=== PATIENT | male | born 1950 | race Caucasian/White ===

== ENCOUNTER 2017-06-17 16:57 | Inpatient (IN) | payer MEDICARE, MEDICAID ==
[~2017-06-17] VITALS: Ht 177.8 cm; Wt 70.0 kg
[~2017-06-17 16:57] MED LIST: ALBU18HF2 INH
[2017-06-17] MEDS ORDERED: ondansetron/PF 4mg/2ml inj ONE (18:11)
[2017-06-17 18:24] LABS: ALANINE AMINOTRANSFERASE 13 U/L (12-78); ALBUMIN 2.6 G/DL (3.4-5.0); ALBUMIN/GLOBULIN RATIO 1.4 (1.1-1.5); ALKALINE PHOSPHATASE 62 IU/L (46-116); ANION GAP 11 (8-16); ASPARTATE AMINO TRANSFERASE 19 U/L (10-37); BILIRUBIN,TOTAL 0.3 MG/DL (0.1-1.0); BLOOD UREA NITROGEN 12 MG/DL (7-18); BUN/CREATININE RATIO 10.8 (5.4-32.0); CALCIUM 6.9 MG/DL (8.5-10.1); CHLORIDE 114 MMOL/L (99-107); CREATININE 1.11 MG/DL (0.60-1.10); GLUCOSE 185 MG/DL (70-104); SODIUM 145 MMOL/L (135-145); TOTAL CARBON DIOXIDE 20.1 MMOL/L (24-32); TOTAL PROTEIN 4.5 G/DL (6.4-8.2); eGFR 67 ML/MIN
[2017-06-17 18:25] LABS: POTASSIUM 4.2 MMOL/L (3.5-5.1)
[2017-06-17 19:07] LABS: BASOPHILS % (AUTO) 0.1 % (0-1); EOSINOPHILS # (AUTO) 0.3 X10'3 (0-0.9); EOSINOPHILS % (AUTO) 1.5 % (0-6); HEMATOCRIT 26.7 % (42.0-52.0); HEMOGLOBIN 9.2 g/dl (14.0-17.9); LYMPHOCYTES # (AUTO) 1.1 X10'3 (1.1-4.8); LYMPHOCYTES % (AUTO) 6.1 % (21-51); MEAN CORPUSCULAR HEMOGLOBIN 35.5 PG (27.0-31.0); MEAN CORPUSCULAR HGB CONC 34.4 % (33.0-36.5); MEAN CORPUSCULAR VOLUME 103.2 FL (78-98); MONOCYTES # (AUTO) 1.5 X10'3 (0-0.9); MONOCYTES % (AUTO) 8.3 % (2-12); NEUTROPHILS # (AUTO) 14.9 X10'3 (1.8-7.7); PLATELET COUNT 248 X10'3 (140-440); RED BLOOD COUNT 2.59 X10'6 (4.70-6.10); RED CELL DISTRIBUTION WIDTH 14.3 % (11.5-14.5); WHITE BLOOD COUNT 17.7 X10'3 (4.5-11.0)
[2017-06-17] MEDS ORDERED: iohexol 350MG/ML 100ml bottle IV ONE (19:13)
[2017-06-17 19:15] LABS: INR 1.2 INR; PARTIAL THROMBOPLASTIN TIME 25 SECONDS (22-32); PROTHROMBIN TIME 12.5 SECONDS (9.0-12.0)
[2017-06-17] MEDS ORDERED: levoFLOXACIN-Levaquin 500mg/D5 100 ML IV ONE (19:25)
[2017-06-17] MEDS ORDERED: LIDOcaine 2% 10ml TOPICAL JELLY (Urojet) MM ONE ×2 (20:05→20:55)
[2017-06-17] MEDS ORDERED: heparin 10,000 units/1 ML INJ ONE (21:34)
[2017-06-17 21:35] LABS: CLARITY,URINE SLIGHTLY CLOUDY (Clear); COLOR,URINE YELLOW (Yellow); GLUCOSE, URINE NEGATIVE (Neg); KETONES,URINE NEGATIVE (Neg); LEUKOCYTE ESTERASE ,URINE NEGATIVE (Neg); NITRITES, URINE NEGATIVE (Neg); OCCULT BLOOD,URINE LARGE (Neg); PH,URINE 5.5 (4.8-8.0); PROTEIN,URINE NEGATIVE (Neg); UROBILINOGEN,URINE 0.2 E.U/dL (0.2-1.0)
[2017-06-17] MEDS ORDERED: clindamycin-Cleocin 900mg/D5W 50 ML IV ONE (21:35)
[2017-06-17 21:39] LABS: UA COLLECTION TYPE FOLEY CATH
[2017-06-17 21:52] VITALS: BP 98/64
[2017-06-17 21:52] LABS: BACTERIA,URINE FEW /HPF (Neg); HYALINE CASTS 0-3 /LPF (NEGATIVE); MUCUS STRANDS FEW /LPF (Neg); RBC,URINE 50-100 /HPF (0-2); SQUAMOUS EPITHELIAL CELL,UR FEW /LPF (FEW); TRANSITIONAL EPI CELLS,URINE FEW /HPF
[2017-06-17] MEDS ORDERED: midazolam 2 mg/2 ml injection ONE (21:54)
[2017-06-17] MEDS ORDERED: fentaNYL /PF 50mcg/ml 5ml ampule ONE (21:55)
[2017-06-17] MEDS ORDERED: etomidate 2mg/ml inj. ONE (21:57)
[2017-06-17 21:59] VITALS: BP 108/79
[2017-06-17] MEDS ORDERED: rocuronium 10mg/ml inj IV ONE (21:59)
[2017-06-17] MEDS ORDERED: LIDOcaine 2% (20mg/ml) 5ml vial ONE (21:59)
[2017-06-17] MEDS ORDERED: nitroGLYCERIN-Tridil 50MG/D5W 250 ML IV ONE (22:08)
[2017-06-17] MEDS ORDERED: sevoflurane 250ml liquid IH ONE (22:14)
[2017-06-17] MEDS ORDERED: phenylephrine 10mg/ml inj IV ONE (22:14)
[2017-06-17] MEDS ORDERED: fentaNYL/PF 50MCG/1 ML 2ML syringe ONE (23:23)
[2017-06-17] MEDS ORDERED: insulin regular, human vial - multi-dose ONE (23:41)
[2017-06-17 23:45] LABS: ISTAT ANION GAP 12 (8-12); ISTAT BUN 11 mg/dL (6-19); ISTAT CL 112 mmol/L (99-107); ISTAT CREATININE 0.8 mg/dL (0.8-1.3); ISTAT GLUCOSE 168 mg/dL (70-104); ISTAT HGB 7.5 g/dl (14.0-18.0); ISTAT Hct 22 %PCV (42-52); ISTAT IONIZED CALCIUM 1.03 mmol/L (1.03-1.32); ISTAT K 4.1 mmol/L (3.5-5.1); ISTAT NA 144 mmol/L (135-145); ISTAT TOTAL CO2 20 mmol/L (24-32); ISTAT eGFR > 90 ML/MIN; POC BUN/CREATININE RATIO 13.8 (5.4-32.0)
[2017-06-18] VITALS (23 sets, daily range): BP systolic 92–160; BP diastolic 50–93
[2017-06-18] MEDS ORDERED: rocuronium 10mg/ml inj IV ONE ×2 (00:02)
[2017-06-18] MEDS ORDERED: oxymetazoline 15 ML nasal spray NS ONE (00:15)
[2017-06-18] MEDS ORDERED: fentaNYL/PF 50MCG/1 ML 2ML syringe ONE (01:37)
[2017-06-18 01:40] LABS: ISTAT ANION GAP 11 (8-12); ISTAT BUN 10 mg/dL (6-19); ISTAT CL 117 mmol/L (99-107); ISTAT CREATININE 0.8 mg/dL (0.8-1.3); ISTAT GLUCOSE 105 mg/dL (70-104); ISTAT HGB 8.5 g/dl (14.0-18.0); ISTAT Hct 25 %PCV (42-52); ISTAT IONIZED CALCIUM 0.95 mmol/L (1.03-1.32); ISTAT K 3.8 mmol/L (3.5-5.1); ISTAT NA 146 mmol/L (135-145); ISTAT TOTAL CO2 18 mmol/L (24-32); ISTAT eGFR > 90 ML/MIN; POC BUN/CREATININE RATIO 12.5 (5.4-32.0)
[2017-06-18 01:46] LABS: ABG BASE EXCESS -9.3 mmol/L (-2.0-3.0); ABG HCO3 16.3 mmol/L (22.0-26.0); ABG OXYGEN SATURATION 98.9 % (95-98); ABG PCO2 (T) 35.8 mmHg (35.0-48.0); ABG PO2 (T) 266.4 mmHg (83-108); FCOHb 0.3 % (0.5-1.5); FMetHb 0.3 % (0.3-1.12); FO2Hb 98.3 % (94-100); TOTAL HEMOGLOBIN 11.2 G/dl (14.0-18.0)
[2017-06-18] MEDS ORDERED: sodium bicarbonate 1 MEQ/1 ml inj ONE ×2 (01:49)
[2017-06-18] MEDS ORDERED: midazolam 100mg in NS 100ml 100 ML IV PRN (03:26)
[2017-06-18] MEDS ORDERED: FENTANYL-0.9 % NACL/PF 100 ML IV PRN (03:26)
[2017-06-18] MEDS ORDERED: clindamycin phosphate 150mg/ml inj. ONE (03:47)
[2017-06-18] MEDS ORDERED: gentamicin 40 MG/1 ML inj ONE (03:47)
[2017-06-18] MEDS ORDERED: morphine 10mg/ml inj. ONE (03:48)
[2017-06-18 05:01] LABS: ABG BASE EXCESS -7.3 mmol/L (-2.0-3.0); ABG HCO3 17.8 mmol/L (22.0-26.0); ABG OXYGEN SATURATION 98.9 % (95-98); ABG PH (T) 7.334 (7.350-7.450); FCOHb 0.3 % (0.5-1.5); FMetHb 0.2 % (0.3-1.12); FO2Hb 98.4 % (94-100); MINUTE VOLUME 8 L/min; PATIENT TEMPERATURE 36.6; PEEP 5 cm H2O; RESPIRATORY RATE 12 b/min; RESPIRATORY RATE (OBSERVED) 12 b/min; TIDAL VOLUME 600 mL; TOTAL HEMOGLOBIN 12.2 G/dl (14.0-18.0)
[2017-06-18] MEDS: clindamycin 600mg/D5W 50ml 50 ML IV SCH ×3 (09:16→19:56)
[2017-06-18] MEDS: lactobacillus rhamnosus 10,000 MMU CELLS/CAPSULE PO SCH ×2 (09:16→19:56)
[2017-06-18] MEDS: Potassium Cl inj 20 MEQ in ringers solution, lacted 1,000 ML IV SCH ×3 (09:16→20:03)
[2017-06-18] MEDS: levoFLOXACIN-Levaquin 750MG/D5 150 ML IV SCH (09:16)
[2017-06-18] MEDS ORDERED: CADD PCA waste documentation MC PRN (14:50)
[2017-06-18] MEDS ORDERED: naloxone 0.4 mg/ml inj IV PRN (14:50)
[2017-06-18] MEDS: HYDROmorphone/NS 1 mg/ml CADD 50 ML IV SCH ×5 (17:00→23:00)
[2017-06-18] MEDS: ondansetron/PF 4mg/2ml inj IV PRN (18:50)
[2017-06-19] VITALS (21 sets, daily range): BP systolic 111–161; BP diastolic 74–99
[2017-06-19] MEDS: HYDROmorphone/NS 1 mg/ml CADD 50 ML IV SCH ×12 (01:00→23:00)
[2017-06-19] MEDS ORDERED: ipratropium 0.5 MG/2.5ML nebule IH PRN (02:15)
[2017-06-19] MEDS: albuterol 2.5 MG/3 ML nebule NEB PRN ×2 (02:30→08:09)
[2017-06-19] MEDS: clindamycin 600mg/D5W 50ml 50 ML IV SCH ×4 (02:41→19:51)
[2017-06-19] MEDS: ondansetron/PF 4mg/2ml inj IV PRN ×3 (02:41→17:47)
[2017-06-19 04:59] LABS: BASOPHILS % (AUTO) 0.1 % (0-1); EOSINOPHILS % (AUTO) 0 % (0-6); HEMATOCRIT 31.6 % (42.0-52.0); LYMPHOCYTES # (AUTO) 0.6 X10'3 (1.1-4.8); MEAN CORPUSCULAR HEMOGLOBIN 32.6 PG (27.0-31.0); MEAN CORPUSCULAR HGB CONC 34.7 % (33.0-36.5); MEAN CORPUSCULAR VOLUME 93.9 FL (78-98); MEAN PLATELET VOLUME 7.2 FL (7.4-10.4); MONOCYTES % (AUTO) 9.2 % (2-12); NEUTROPHILS # (AUTO) 9.5 X10'3 (1.8-7.7); NEUTROPHILS % (AUTO) 85.7 % (42-75); PLATELET COUNT 150 X10'3 (140-440); RED BLOOD COUNT 3.36 X10'6 (4.70-6.10); RED CELL DISTRIBUTION WIDTH 18.8 % (11.5-14.5); WHITE BLOOD COUNT 11.1 X10'3 (4.5-11.0)
[2017-06-19 05:09] LABS: ALBUMIN 1.9 G/DL (3.4-5.0); ANION GAP 10 (8-16); BLOOD UREA NITROGEN 21 MG/DL (7-18); BUN/CREATININE RATIO 9.3 (5.4-32.0); CALCIUM 6.9 MG/DL (8.5-10.1); CHLORIDE 114 MMOL/L (99-107); CREATININE 2.27 MG/DL (0.60-1.10); GLUCOSE 110 MG/DL (70-104); SODIUM 146 MMOL/L (135-145); eGFR 29 ML/MIN
[2017-06-19] MEDS: Potassium Cl inj 20 MEQ in ringers solution, lacted 1,000 ML IV SCH ×3 (05:58→22:32)
[2017-06-19] MEDS: mineral oil/petrolatum ophthal oint EACHEYE SCH ×3 (08:00→19:51)
[2017-06-19] MEDS: lactobacillus rhamnosus 10,000 MMU CELLS/CAPSULE PO SCH ×2 (08:25→19:52)
[2017-06-19] MEDS: levoFLOXACIN-Levaquin 750MG/D5 150 ML IV SCH (08:30)
[2017-06-19] MEDS: pantoprazole 40 MG vial IV SCH (11:29)
[2017-06-19 17:13] LABS: CLARITY,URINE CLOUDY (Clear); COLOR,URINE YELLOW (Yellow); GLUCOSE, URINE 250 mg/dl (Neg); KETONES,URINE NEGATIVE (Neg); LEUKOCYTE ESTERASE ,URINE NEGATIVE (Neg); NITRITES, URINE NEGATIVE (Neg); OCCULT BLOOD,URINE LARGE (Neg); PH,URINE 5.5 (4.8-8.0); PROTEIN,URINE 100 mg/dl (Neg); UROBILINOGEN,URINE 0.2 E.U/dL (0.2-1.0)
[2017-06-19 17:19] LABS: UA COLLECTION TYPE FOLEY CATH
[2017-06-19 17:21] LABS: BACTERIA,URINE NONE SEEN /HPF (Neg); SQUAMOUS EPITHELIAL CELL,UR NONE SEEN /LPF (FEW); WBC,URINE 0-4 /HPF (0-4)
[2017-06-19 17:22] LABS: TRANSITIONAL EPI CELLS,URINE FEW /HPF
[2017-06-19 17:37] LABS: UA EOSINOPHILS NO EOS /HPF
[2017-06-20] VITALS (24 sets, daily range): BP systolic 114–167; BP diastolic 70–99
[2017-06-20] MEDS: HYDROmorphone/NS 1 mg/ml CADD 50 ML IV SCH ×12 (01:00→23:00)
[2017-06-20] MEDS: clindamycin 600mg/D5W 50ml 50 ML IV SCH ×4 (01:43→19:56)
[2017-06-20] MEDS: ondansetron/PF 4mg/2ml inj IV PRN ×3 (01:55→17:24)
[2017-06-20] MEDS: mineral oil/petrolatum ophthal oint EACHEYE SCH ×4 (02:00→19:56)
[2017-06-20 02:48] LABS: BASOPHILS % (AUTO) 0.2 % (0-1); EOSINOPHILS % (AUTO) 0 % (0-6); HEMOGLOBIN 9.3 g/dl (14.0-17.9); LYMPHOCYTES # (AUTO) 0.5 X10'3 (1.1-4.8); LYMPHOCYTES % (AUTO) 5.2 % (21-51); MEAN CORPUSCULAR HEMOGLOBIN 32.5 PG (27.0-31.0); MEAN CORPUSCULAR HGB CONC 34.5 % (33.0-36.5); MEAN CORPUSCULAR VOLUME 94.3 FL (78-98); MEAN PLATELET VOLUME 7.1 FL (7.4-10.4); MONOCYTES # (AUTO) 0.8 X10'3 (0-0.9); MONOCYTES % (AUTO) 7.6 % (2-12); NEUTROPHILS # (AUTO) 9.1 X10'3 (1.8-7.7); PLATELET COUNT 126 X10'3 (140-440); RED BLOOD COUNT 2.87 X10'6 (4.70-6.10); RED CELL DISTRIBUTION WIDTH 18.1 % (11.5-14.5); WHITE BLOOD COUNT 10.4 X10'3 (4.5-11.0)
[2017-06-20 03:08] LABS: ALBUMIN 1.8 G/DL (3.4-5.0); ANION GAP 11 (8-16); BLOOD UREA NITROGEN 23 MG/DL (7-18); BUN/CREATININE RATIO 11.7 (5.4-32.0); CALCIUM 7.5 MG/DL (8.5-10.1); CHLORIDE 111 MMOL/L (99-107); CREATININE 1.96 MG/DL (0.60-1.10); GLUCOSE 95 MG/DL (70-104); POTASSIUM 3.8 MMOL/L (3.5-5.1); SODIUM 144 MMOL/L (135-145); TOTAL CARBON DIOXIDE 21.8 MMOL/L (24-32); eGFR 35 ML/MIN
[2017-06-20] MEDS: Potassium Cl inj 20 MEQ in ringers solution, lacted 1,000 ML IV SCH ×3 (05:04→15:11)
[2017-06-20] MEDS: pantoprazole 40 MG vial IV SCH (07:39)
[2017-06-20] MEDS: lactobacillus rhamnosus 10,000 MMU CELLS/CAPSULE PO SCH ×2 (07:45→19:57)
[2017-06-20] MEDS: diltiazem 30mg tablet PO SCH ×2 (15:15→19:57)
[2017-06-21] VITALS (22 sets, daily range): BP systolic 104–147; BP diastolic 62–86
[2017-06-21] MEDS: Potassium Cl inj 20 MEQ in ringers solution, lacted 1,000 ML IV SCH (00:06)
[2017-06-21] MEDS: HYDROmorphone/NS 1 mg/ml CADD 50 ML IV SCH ×12 (01:00→23:00)
[2017-06-21] MEDS: clindamycin 600mg/D5W 50ml 50 ML IV SCH ×4 (01:51→20:07)
[2017-06-21] MEDS: diltiazem 30mg tablet PO SCH ×4 (01:51→20:07)
[2017-06-21] MEDS: mineral oil/petrolatum ophthal oint EACHEYE SCH ×3 (01:52→12:56)
[2017-06-21 02:45] LABS: BASOPHILS % (AUTO) 0 % (0-1); EOSINOPHILS # (AUTO) 0.1 X10'3 (0-0.9); LYMPHOCYTES # (AUTO) 0.6 X10'3 (1.1-4.8); LYMPHOCYTES % (AUTO) 5.5 % (21-51); MEAN CORPUSCULAR HEMOGLOBIN 32.6 PG (27.0-31.0); MEAN CORPUSCULAR HGB CONC 34.5 % (33.0-36.5); MEAN CORPUSCULAR VOLUME 94.4 FL (78-98); MEAN PLATELET VOLUME 6.6 FL (7.4-10.4); MONOCYTES # (AUTO) 0.7 X10'3 (0-0.9); MONOCYTES % (AUTO) 6.4 % (2-12); NEUTROPHILS % (AUTO) 87.1 % (42-75); PLATELET COUNT 119 X10'3 (140-440); RED BLOOD COUNT 2.75 X10'6 (4.70-6.10); RED CELL DISTRIBUTION WIDTH 17.5 % (11.5-14.5); WHITE BLOOD COUNT 11.5 X10'3 (4.5-11.0)
[2017-06-21 02:54] LABS: ALBUMIN 1.8 G/DL (3.4-5.0); ANION GAP 12 (8-16); BLOOD UREA NITROGEN 26 MG/DL (7-18); BUN/CREATININE RATIO 14.9 (5.4-32.0); CALCIUM 7.7 MG/DL (8.5-10.1); CHLORIDE 107 MMOL/L (99-107); CREATININE 1.74 MG/DL (0.60-1.10); GLUCOSE 93 MG/DL (70-104); SODIUM 138 MMOL/L (135-145); TOTAL CARBON DIOXIDE 19.4 MMOL/L (24-32); eGFR 40 ML/MIN
[2017-06-21] MEDS: ondansetron/PF 4mg/2ml inj IV PRN ×2 (07:10→19:30)
[2017-06-21] MEDS: pantoprazole 40 MG vial IV SCH (08:19)
[2017-06-21] MEDS: lactobacillus rhamnosus 10,000 MMU CELLS/CAPSULE PO SCH ×2 (08:19→20:07)
[2017-06-21] MEDS: levoFLOXACIN-Levaquin 750MG/D5 150 ML IV SCH (08:19)
[2017-06-21] MEDS: DARUNAVIR ETHANOLATE 800 MG PO SCH (08:45)
[2017-06-21] MEDS: TIVICAY 50 MG PO SCH (10:00)
[2017-06-21] MEDS ORDERED: VALA100027 (11:49)
[2017-06-21] MEDS ORDERED: DOLU50TA (11:49)
[2017-06-21] MEDS ORDERED: PANT40TA4 (11:49)
[2017-06-21] MEDS ORDERED: DARU800T (11:49)
[2017-06-21] MEDS ORDERED: RITO100T4 (11:49)
[2017-06-21] MEDS ORDERED: [UNRECOGNIZED DRUG - CODE] (11:49)
[2017-06-21] MEDS ORDERED: DOXA2TAB46 (11:49)
[2017-06-21] MEDS ORDERED: magnesium hydroxide 30ml (MOM) UD suspension PO PRN (13:55)
[2017-06-21] MEDS ORDERED: bisacodyl 10mg suppository rectal RC PRN (13:55)
[2017-06-21] MEDS: docusate sod 100mg capsule PO SCH (20:08)
[2017-06-21] MEDS ORDERED: HYDROcodone/acetaminophen 10/325mg tab PO PRN (20:30)
[2017-06-22] VITALS: BP 142/82
[2017-06-22] MEDS: HYDROmorphone/NS 1 mg/ml CADD 50 ML IV SCH ×12 (01:00→23:00)
[2017-06-22] MEDS: ondansetron/PF 4mg/2ml inj IV PRN ×2 (02:13→20:00)
[2017-06-22] MEDS: clindamycin 600mg/D5W 50ml 50 ML IV SCH ×4 (02:16→19:53)
[2017-06-22] MEDS: diltiazem 30mg tablet PO SCH ×4 (02:34→19:55)
[2017-06-22] MEDS: normal saline 1000ml 1,000 ML IV SCH (04:23)
[2017-06-22 06:02] LABS: ALBUMIN 1.9 G/DL (3.4-5.0); ANION GAP 9 (8-16); BLOOD UREA NITROGEN 25 MG/DL (7-18); BUN/CREATININE RATIO 15.3 (5.4-32.0); CALCIUM 7.7 MG/DL (8.5-10.1); CHLORIDE 103 MMOL/L (99-107); CREATININE 1.63 MG/DL (0.60-1.10); GLUCOSE 95 MG/DL (70-104); POTASSIUM 3.6 MMOL/L (3.5-5.1); SODIUM 135 MMOL/L (135-145); TOTAL CARBON DIOXIDE 23.3 MMOL/L (24-32); eGFR 43 ML/MIN
[2017-06-22 06:03] LABS: BASOPHILS % (AUTO) 0 % (0-1); EOSINOPHILS % (AUTO) 0 % (0-6); HEMATOCRIT 27.5 % (42.0-52.0); HEMOGLOBIN 9.4 g/dl (14.0-17.9); LYMPHOCYTES # (AUTO) 0.6 X10'3 (1.1-4.8); LYMPHOCYTES % (AUTO) 4.6 % (21-51); MEAN CORPUSCULAR HEMOGLOBIN 32.6 PG (27.0-31.0); MEAN CORPUSCULAR HGB CONC 34.3 % (33.0-36.5); MEAN CORPUSCULAR VOLUME 94.9 FL (78-98); MEAN PLATELET VOLUME 6.6 FL (7.4-10.4); MONOCYTES # (AUTO) 1.4 X10'3 (0-0.9); MONOCYTES % (AUTO) 11.9 % (2-12); NEUTROPHILS % (AUTO) 83.5 % (42-75); PLATELET COUNT 120 X10'3 (140-440); RED CELL DISTRIBUTION WIDTH 17.1 % (11.5-14.5)
[2017-06-22 07:45] VITALS: BP 150/83
[2017-06-22] MEDS: TIVICAY 50 MG PO SCH (08:00)
[2017-06-22] MEDS: DARUNAVIR ETHANOLATE 800 MG PO SCH (08:00)
[2017-06-22] MEDS: pantoprazole 40mg Tablet.DR PO SCH (08:48)
[2017-06-22] MEDS: docusate sod 100mg capsule PO SCH ×2 (08:51→19:55)
[2017-06-22] MEDS: lactobacillus rhamnosus 10,000 MMU CELLS/CAPSULE PO SCH ×2 (08:52→19:55)
[2017-06-22 10:37] VITALS: BP 150/83
[2017-06-22 11:26] VITALS: BP 147/84
[2017-06-22 20:00] VITALS: BP 133/84
[2017-06-23] VITALS: BP 147/89
[2017-06-23] MEDS: HYDROmorphone/NS 1 mg/ml CADD 50 ML IV SCH ×11 (01:00→21:00)
[2017-06-23] MEDS: diltiazem 30mg tablet PO SCH ×4 (02:45→20:05)
[2017-06-23] MEDS: clindamycin 600mg/D5W 50ml 50 ML IV SCH ×2 (02:45→08:04)
[2017-06-23 06:21] LABS: BASOPHILS % (AUTO) 0 % (0-1); EOSINOPHILS # (AUTO) 0.1 X10'3 (0-0.9); EOSINOPHILS % (AUTO) 0.9 % (0-6); HEMATOCRIT 27.6 % (42.0-52.0); HEMOGLOBIN 9.6 g/dl (14.0-17.9); LYMPHOCYTES # (AUTO) 0.6 X10'3 (1.1-4.8); LYMPHOCYTES % (AUTO) 3.9 % (21-51); MEAN CORPUSCULAR HEMOGLOBIN 33.1 PG (27.0-31.0); MEAN CORPUSCULAR HGB CONC 34.9 % (33.0-36.5); MEAN CORPUSCULAR VOLUME 94.8 FL (78-98); MEAN PLATELET VOLUME 6.2 FL (7.4-10.4); MONOCYTES # (AUTO) 1.8 X10'3 (0-0.9); MONOCYTES % (AUTO) 12.6 % (2-12); NEUTROPHILS # (AUTO) 11.8 X10'3 (1.8-7.7); NEUTROPHILS % (AUTO) 82.6 % (42-75); PLATELET COUNT 129 X10'3 (140-440); RED BLOOD COUNT 2.91 X10'6 (4.70-6.10); RED CELL DISTRIBUTION WIDTH 16.7 % (11.5-14.5); WHITE BLOOD COUNT 14.3 X10'3 (4.5-11.0)
[2017-06-23 06:36] LABS: ALBUMIN 1.7 G/DL (3.4-5.0); ANION GAP 9 (8-16); BLOOD UREA NITROGEN 21 MG/DL (7-18); BUN/CREATININE RATIO 14.1 (5.4-32.0); CALCIUM 7.5 MG/DL (8.5-10.1); CHLORIDE 102 MMOL/L (99-107); CREATININE 1.49 MG/DL (0.60-1.10); GLUCOSE 90 MG/DL (70-104); POTASSIUM 3.4 MMOL/L (3.5-5.1); SODIUM 135 MMOL/L (135-145); TOTAL CARBON DIOXIDE 23.9 MMOL/L (24-32); eGFR 47 ML/MIN
[2017-06-23 07:00] VITALS: BP 144/73
[2017-06-23] MEDS: LAMIVUDINE 300 MG PO SCH (08:00)
[2017-06-23] MEDS: TIVICAY 50 MG PO SCH (08:00)
[2017-06-23] MEDS: DARUNAVIR ETHANOLATE 800 MG PO SCH (08:00)
[2017-06-23] MEDS: docusate sod 100mg capsule PO SCH ×2 (08:03→20:05)
[2017-06-23] MEDS: lactobacillus rhamnosus 10,000 MMU CELLS/CAPSULE PO SCH ×2 (08:03→20:05)
[2017-06-23] MEDS: levoFLOXACIN-Levaquin 750MG/D5 150 ML IV SCH (08:04)
[2017-06-23] MEDS: aspirin 81mg tablet.DR PO SCH (08:04)
[2017-06-23] MEDS: pantoprazole 40mg Tablet.DR PO SCH ×2 (08:04→16:53)
[2017-06-23] MEDS: ondansetron/PF 4mg/2ml inj IV PRN ×2 (08:09→21:55)
[2017-06-23 12:30] VITALS: BP 125/90
[2017-06-23 20:00] VITALS: BP 144/86
[2017-06-24] VITALS: BP 132/82
[2017-06-24] MEDS: HYDROmorphone/NS 1 mg/ml CADD 50 ML IV SCH ×9 (01:00→17:00)
[2017-06-24] MEDS: diltiazem 30mg tablet PO SCH ×4 (02:32→20:23)
[2017-06-24] MEDS: normal saline 1000ml 1,000 ML IV SCH (04:20)
[2017-06-24 07:00] VITALS: BP 138/74
[2017-06-24] MEDS: lactobacillus rhamnosus 10,000 MMU CELLS/CAPSULE PO SCH ×2 (07:58→20:23)
[2017-06-24] MEDS: docusate sod 100mg capsule PO SCH ×2 (07:59→20:23)
[2017-06-24] MEDS: pantoprazole 40mg Tablet.DR PO SCH ×2 (07:59→17:56)
[2017-06-24] MEDS: DARUNAVIR ETHANOLATE 800 MG PO SCH (08:00)
[2017-06-24] MEDS: LAMIVUDINE 300 MG PO SCH (08:00)
[2017-06-24] MEDS: TIVICAY 50 MG PO SCH (08:00)
[2017-06-24] MEDS ORDERED: methylnaltrexone br 12mg/0.6ml inj***SubQ only SQ SCH (08:00)
[2017-06-24] MEDS: citalopram 20mg tablet PO SCH (08:00)
[2017-06-24] MEDS: aspirin 81mg tablet.DR PO SCH (08:01)
[2017-06-24 09:32] LABS: HIV-1 RNA by PCR <20 copies/mL (.)
[2017-06-24 11:00] VITALS: BP 146/87
[2017-06-24 11:12] LABS: BASOPHILS % (AUTO) 0.1 % (0-1); EOSINOPHILS # (AUTO) 0.2 X10'3 (0-0.9); EOSINOPHILS % (AUTO) 1.5 % (0-6); HEMATOCRIT 28.8 % (42.0-52.0); HEMOGLOBIN 9.9 g/dl (14.0-17.9); LYMPHOCYTES # (AUTO) 0.4 X10'3 (1.1-4.8); LYMPHOCYTES % (AUTO) 3.2 % (21-51); MEAN CORPUSCULAR HEMOGLOBIN 32.7 PG (27.0-31.0); MEAN CORPUSCULAR HGB CONC 34.3 % (33.0-36.5); MEAN CORPUSCULAR VOLUME 95.3 FL (78-98); MEAN PLATELET VOLUME 6.4 FL (7.4-10.4); MONOCYTES # (AUTO) 1.7 X10'3 (0-0.9); NEUTROPHILS # (AUTO) 10.7 X10'3 (1.8-7.7); NEUTROPHILS % (AUTO) 82.2 % (42-75); PLATELET COUNT 175 X10'3 (140-440); RED BLOOD COUNT 3.02 X10'6 (4.70-6.10); RED CELL DISTRIBUTION WIDTH 17.1 % (11.5-14.5)
[2017-06-24 11:21] LABS: ALBUMIN 1.7 G/DL (3.4-5.0); ANION GAP 7 (8-16); BLOOD UREA NITROGEN 20 MG/DL (7-18); BUN/CREATININE RATIO 14.7 (5.4-32.0); CALCIUM 7.5 MG/DL (8.5-10.1); CHLORIDE 102 MMOL/L (99-107); CREATININE 1.36 MG/DL (0.60-1.10); GLUCOSE 124 MG/DL (70-104); POTASSIUM 3.3 MMOL/L (3.5-5.1); SODIUM 135 MMOL/L (135-145); TOTAL CARBON DIOXIDE 26.2 MMOL/L (24-32); eGFR 53 ML/MIN
[2017-06-24] MEDS ORDERED: potassium Cl 20 mEq SR tablet PO PRN (14:25)
[2017-06-24] MEDS ORDERED: magnesium 4gm in 100ml NS 100 ML IV PRN (14:25)
[2017-06-24] MEDS ORDERED: magnesium Cl slow-release 64mg tablet PO PRN (14:25)
[2017-06-24] MEDS ORDERED: potassium Cl 40MEQ/NS 500ml 500 ML IV PRN ×2 (14:25)
[2017-06-24] MEDS ORDERED: magnesium 2GM in 50ml NS 50 ML IV PRN (14:25)
[2017-06-24] MEDS: potassium Cl 20 mEq SR tablet PO PRN ×3 (15:00→23:13)
[2017-06-24 19:00] VITALS: BP 144/87
[2017-06-25] VITALS: BP 149/85
[2017-06-25] MEDS: diltiazem 30mg tablet PO SCH ×2 (01:58→08:44)
[2017-06-25 08:00] VITALS: BP 134/84
[2017-06-25] MEDS: docusate sod 100mg capsule PO SCH (08:00)
[2017-06-25] MEDS: DARUNAVIR ETHANOLATE 800 MG PO SCH (08:00)
[2017-06-25] MEDS: TIVICAY 50 MG PO SCH (08:00)
[2017-06-25] MEDS: LAMIVUDINE 300 MG PO SCH (08:00)
[2017-06-25] MEDS: pantoprazole 40mg Tablet.DR PO SCH (08:44)
[2017-06-25] MEDS: aspirin 81mg tablet.DR PO SCH (08:44)
[2017-06-25] MEDS: citalopram 20mg tablet PO SCH (08:44)
[2017-06-25] MEDS: lactobacillus rhamnosus 10,000 MMU CELLS/CAPSULE PO SCH (08:44)
[2017-06-25] MEDS: ondansetron/PF 4mg/2ml inj IV PRN (10:54)
[2017-06-25 11:00] VITALS: BP 122/73
[2017-06-25] MEDS ORDERED: DILT30TA5 PO (11:45)
[2017-06-25] MEDS ORDERED: HYDR-3972 PO (11:45)
[2017-06-25] MEDS ORDERED: COL100C PO (11:45)
[2017-06-25] MEDS ORDERED: CITA20TA11 PO (11:45)
[2017-06-25] MEDS ORDERED: ASPI-1071 PO (11:45)
[2017-06-25] MEDS ORDERED: PANT40TA4 PO (11:54)
[2017-06-25] MEDS ORDERED: ONDA4TAB6 PO (11:54)
[2017-06-25 12:36] LABS: BASOPHILS % (AUTO) 0.1 % (0-1); EOSINOPHILS # (AUTO) 0.2 X10'3 (0-0.9); EOSINOPHILS % (AUTO) 1.8 % (0-6); HEMATOCRIT 31.1 % (42.0-52.0); HEMOGLOBIN 10.6 g/dl (14.0-17.9); LYMPHOCYTES # (AUTO) 0.5 X10'3 (1.1-4.8); LYMPHOCYTES % (AUTO) 4.9 % (21-51); MEAN CORPUSCULAR HEMOGLOBIN 32.4 PG (27.0-31.0); MEAN CORPUSCULAR HGB CONC 34.1 % (33.0-36.5); MEAN CORPUSCULAR VOLUME 95.1 FL (78-98); MEAN PLATELET VOLUME 6.5 FL (7.4-10.4); MONOCYTES # (AUTO) 1.7 X10'3 (0-0.9); MONOCYTES % (AUTO) 15.1 % (2-12); NEUTROPHILS # (AUTO) 8.6 X10'3 (1.8-7.7); NEUTROPHILS % (AUTO) 78.1 % (42-75); PLATELET COUNT 270 X10'3 (140-440); RED BLOOD COUNT 3.27 X10'6 (4.70-6.10); RED CELL DISTRIBUTION WIDTH 17.1 % (11.5-14.5)
[2017-06-25] MEDS ORDERED: SENN-161 PO (12:42)
[2017-06-25 12:45] LABS: ALBUMIN 1.9 G/DL (3.4-5.0); ANION GAP 10 (8-16); BLOOD UREA NITROGEN 21 MG/DL (7-18); BUN/CREATININE RATIO 15.8 (5.4-32.0); CALCIUM 7.8 MG/DL (8.5-10.1); CHLORIDE 101 MMOL/L (99-107); CREATININE 1.33 MG/DL (0.60-1.10); GLUCOSE 123 MG/DL (70-104); POTASSIUM 3.4 MMOL/L (3.5-5.1); SODIUM 134 MMOL/L (135-145); TOTAL CARBON DIOXIDE 23.1 MMOL/L (24-32); eGFR 54 ML/MIN
== END 2017-06-25 14:03 | disposition home health service (06) | DRG 268 ==
LOC: ER 16:58 → ED HOLD 21:35 → CICU 2S 06-18 03:49 → SUR 3N 06-21 22:15
PROVIDERS: ADMIT Surgery; ATTEND Internal Medicine
PROC: 04CL0ZZ Extirpation of Matter from Left Femoral Artery, Open Approach (ICD-10-PCS; 2017-06-17)
PROC: 04CK0ZZ Extirpation of Matter from Right Femoral Artery, Open Approach (ICD-10-PCS; 2017-06-17)
PROC: 04C00ZZ Extirpation of Matter from Abdominal Aorta, Open Approach (ICD-10-PCS; 2017-06-17)
PROC: 0WCH0ZZ Extirpation of Matter from Retroperitoneum, Open Approach (ICD-10-PCS; 2017-06-17)
PROC: 30233N1 Transfusion of Nonautologous Red Blood Cells into Peripheral Vein, Percutaneous Approach (ICD-10-PCS; 2017-06-17)
PROC: B4201ZZ Computerized Tomography (CT Scan) of Abdominal Aorta using Low Osmolar Contrast (ICD-10-PCS; 2017-06-17)
PROC: B42H1ZZ Computerized Tomography (CT Scan) of Bilateral Lower Extremity Arteries using Low Osmolar Contrast (ICD-10-PCS; 2017-06-17)
PROC: 05HM33Z Insertion of Infusion Device into Right Internal Jugular Vein, Percutaneous Approach (ICD-10-PCS; 2017-06-17)
PROC: 04100JK Bypass Abdominal Aorta to Bilateral Femoral Arteries with Synthetic Substitute, Open Approach (ICD-10-PCS; principal; 2017-06-17 22:14)
PROC: 5A1935Z Respiratory Ventilation, Less than 24 Consecutive Hours (ICD-10-PCS; 2017-06-18)
PROC: 30233L1 Transfusion of Nonautologous Fresh Plasma into Peripheral Vein, Percutaneous Approach (ICD-10-PCS; 2017-06-18)
PROC: 30233R1 Transfusion of Nonautologous Platelets into Peripheral Vein, Percutaneous Approach (ICD-10-PCS; 2017-06-18)
PROC: 30233K1 Transfusion of Nonautologous Frozen Plasma into Peripheral Vein, Percutaneous Approach (ICD-10-PCS; 2017-06-18)
DX: R58 Hemorrhage, not elsewhere classified (principal); K66.1 Hemoperitoneum; J96.00 Acute respiratory failure, unspecified whether with hypoxia or hypercapnia; R64 Cachexia; E43 Unspecified severe protein-calorie malnutrition; I74.5 Embolism and thrombosis of iliac artery; K56.7 Ileus, unspecified; N17.9 Acute kidney failure, unspecified; J44.9 Chronic obstructive pulmonary disease, unspecified; F32.9 Major depressive disorder, single episode, unspecified; I73.9 Peripheral vascular disease, unspecified; Z90.49 Acquired absence of other specified parts of digestive tract; Z88.0 Allergy status to penicillin; Z86.73 Personal history of transient ischemic attack (TIA), and cerebral infarction without residual deficits; Z87.891 Personal history of nicotine dependence; Z68.22 Body mass index [BMI] 22.0-22.9, adult
CPT/HCPCS: 36415; 36600; 71045; 74174; 80047; 80048; 80053; 81001; 82570; 82803; 82948; 83605; 84132; 84300; 84484; 85018; 85025; 85610; 85730; 86885; 86900; 86901; 86920; 87040; 87070; 87088; 87207; 87535; 88300; 93005; 93926; 93971; 94002; 94640; 94760; 96365; 97110; 97116; 97162; 97530; 99291; A6213; A6223; A6255; A6257; A6258; A6449; A7000; C1758; C1768; C9113; J1170; J1580; J1644; J1815; J1956; J2001; J2250; J2270; J2370; J2405; J3010; J3480; J3490; J7030; J7120; P9016; P9035; P9059; Q9967

== ENCOUNTER 2020-07-17 11:52 | Emergency (ER) | payer MEDICARE, MEDICAID ==
[~2020-07-17] VITALS: Ht 182.9 cm; Wt 78.2 kg
[~2020-07-17 11:52] MED LIST changes: +ASPI-1071 PO; +CITA20TA28 PO; +COL100C PO; +DARU800T; +DILT30TA5 PO; +DOLU50TA; +DOXA2TAB46; +HYDR-3972 PO; +ONDA4TAB6 PO; +PANT40TA54; +PANT40TA54 PO; +RITO100T4; +SENN-263 PO; +VALA100031; +[UNRECOGNIZED DRUG - CODE]
[2020-07-17 12:59] VITALS: BP 92/73
[2020-07-17] MEDS ORDERED: amox tr/potassium clavulanate 875/125mg TAB PO ONE (14:50)
[2020-07-17] MEDS ORDERED: TETanus/Pertussis (Acell)/Diphther VAC/PF (Tdap-Adult) 0.5ml syringe IMVAC ONE (14:50)
[2020-07-17] MEDS ORDERED: AMOX-580 PO (15:07)
== END 2020-07-17 16:08 | disposition home or self-care (01) ==
LOC: ER 11:53
DX: S61.532A Puncture wound without foreign body of left wrist, initial encounter (principal); J44.9 Chronic obstructive pulmonary disease, unspecified; Z20.3 Contact with and (suspected) exposure to rabies; Z86.73 Personal history of transient ischemic attack (TIA), and cerebral infarction without residual deficits; Z87.01 Personal history of pneumonia (recurrent); Z72.89 Other problems related to lifestyle; Z88.0 Allergy status to penicillin; Z79.2 Long term (current) use of antibiotics; Z79.82 Long term (current) use of aspirin; Z79.899 Other long term (current) drug therapy; W55.01XA Bitten by cat, initial encounter; Y93.89 Activity, other specified; Y92.89 Other specified places as the place of occurrence of the external cause; Y99.8 Other external cause status
CPT/HCPCS: 90471; 90715; 99283